=== PATIENT | female | born 1970 | race Caucasian/White ===

== ENCOUNTER 2022-04-19 08:17 | Outpatient (CLI) | payer BC, SELFPAY ==
[2022-04-19 12:46] LABS: Chloride* 107 mmol/L (96-114)
[2022-04-19 12:47] LABS: Albumin* 4.5 g/dL (3.3-5.0); Potassium* 4.4 mmol/L (3.6-5.1); Sodium* 139 mmol/L (135-149)
[2022-04-19 12:49] LABS: Cholesterol* 243 mg/dL (90-199); Creatinine* 0.6 mg/dL (0.5-1.5); Estimated Glomerular Filt Rate 107 ml/min
[2022-04-19 12:50] LABS: Alanine Aminotransferase* 21 U/L (4-35); Alkaline Phosphatase* 62 U/L (40-150); Aspartate Amino Transferase* 26 U/L (12-35); Bilirubin Total* 0.9 mg/dL (0.1-1.5); Blood Urea Nitrogen* 13 mg/dL (7-30); Calcium* 9.3 mg/dL (8.4-10.6); Carbon Dioxide* 20 mmol/L (20-32); Glucose* 118 mg/dL (60-115); HDL Cholesterol* 66 mg/dL (>=50); LDL Cholesterol Calculated 153 mg/dL (<100); Total Protein* 7.4 g/dL (6.0-8.3); Triglycerides* 120 mg/dL (40-149)
[2022-04-19 15:14] LABS: Free T4 Free Thyroxine* 0.89 ng/dL (0.70-1.85)
== END 2022-04-19 08:18 | disposition home or self-care (01) ==
PROVIDERS: PCP Physician Assistant Medical; Visit Provider Physician Assistant Medical
DX: Z00.00 Encounter for general adult medical examination without abnormal findings (principal); I10 Essential (primary) hypertension; R73.01 Impaired fasting glucose; E78.5 Hyperlipidemia, unspecified; E66.9 Obesity, unspecified
CPT/HCPCS: 80053; 80061; 84439; 84443

== ENCOUNTER 2023-12-17 09:51 | Outpatient (CLI) | payer BC, SELFPAY ==
--- OUTSIDE RECORDS SUMMARY | 2023-12-21 02:55 | XMS_ITS ---
Author Organization [facility] Address [address] [place] [address] Care Team Providers Care Double Bottom Driver Name Role Phone None, No PCP Primary Care Provider Jud Padron Unavailable [phone] REASON FOR VISIT Rx Questions Encounters Encounter Location Date Provider Diagnosis [facility] [address] [place] [address] 12/03/2023 Jud Roche Plan Of Treatment No Information Progress Notes * Jayme LOPEZOB:1970 ( 53 yo F)Acc No.[id number]:12/03/2023 Patient:?Nina LOPEZ :1970???Age:53 Y???Sex:Female [place] [place], [address] * true * Date:? Generated for Pam leo/Chavo/eTransmitting on:?12/21/2023 02:55 AM CDT
--- OUTSIDE RECORDS SUMMARY | 2023-12-21 02:55 | XMS_ITS | Clinical Summary ---
Author Organization [facility] Address [place] [address] Care Team Providers Care Metal Tester Name Role Phone Rachana Thacker PA-C Primary Care Provider [phone] Allergies No known active allergies Medications Medication Sig Dispensed Refills Start Date End Date Status lisinopril (PRINIVIL; ZESTRIL) 10 mg tablet Take 1 tablet by mouth once daily. 0 10/25/2012 Active metroNIDAZOLE 0.75 % cream APPLY TOPICALLY BID. APPLY THIN LAYER TO CLEAN FACE TWICE DAILY 12/31/2019 Active rizatriptan (MAXALT) 5 mg tablet 12/31/2019 Active Active Problems No known active problems Encounters Date Type Department Care Team Description 10/04/2023 9:45 AM CDT Office Visit [facility] [address] [place] [address] Luis Johnston, OD Eye Exam (CEE) 10/04/2023 Travel 10/02/2023 11:20 AM CDT Ancillary Procedure [facility] [address] [facility] [address] [place] [address] 10/02/2023 Travel 09/30/2023 Travel from Last 3 Months Family History Medical History Relation Name Comments Cancer-colon Maternal Grandmother Cancer Mother gall bladder pr imary, widespread abd mets includin pancreas, 12 days after diagnosis Cancer-breast Other Mat great aunt Cancer-ovarian No Family History Cancer-pancreatic No Family History Cancer-prostate No Family History Relation Name Status Comments Maternal Grandmother Mother Other Social History Tobacco Use Types Packs/Day Years Used Date Smoking Tobacco: Never Smokeless Tobacco: Never Alcohol Use Standard Drinks/Week Comments Yes 0 (1 standard drink = 0.6 oz pur e alcohol) Social Connections Answer Date Recorded Frequency of Communication with Friends and Fami ly Not on file 03/22/2021 Financial Resource Strain Answer Date R ecorded Difficulty of Paying Living Expenses Not on file 03/22/2021 Difficulty of Paying Living Expenses Not on file 03/22/2021 Sex and Gender Information Value Date Recorded Sex Assigned at Not on file Gender Identity Not on file Sexual Orientation Not on file Obstetrics History Last Filed Vital Signs Vital Sign Reading Time Taken Comments Blood Pressure 136/70 03/16/2020 11:33 AM PLUMBER'S ASSISTANT Pulse 87 03/16/2020 11:33 AM PLUMBER'S ASSISTANT Temperature - - Respiratory Rate - - Oxygen Saturation - - Inhaled Oxygen Concentration - - Weight 108.8 kg (239 lb 14.4 oz) 2019 11:33 AM PLUMBER'S ASSISTANT Height 167.6 cm (5' 6) 03/16/2020 11:3 3 AM PLUMBER'S ASSISTANT Body Mass Index 38.72 03/16/2020 11:33 AM PLUMBER'S ASSISTANT Plan of Treatment Health Maintenance Due Date Last Done Comments Tdap 1979 Depression screening for age 12+ 1980 HIV for age 15-65 1983 Hepatitis C screening for age 18-79 1986 Tetanus booster 1988 Colonoscopy through age 75 2013 Lipids for age 45-75 2013 Zoster (shingles) series for age 50+ (1 of 2) 2018 BMI (ht and wt on same day) for age 18+ 03/16/2021 03/16/2020 Pap test for age 21-65 12/02/2021 12/02/2018, 2018 COVID-19 vaccine series (2023- season) 2023 05/06/2023, 01/25/2022, 11/04/2021, Additional history exists Influenza for age 50-64 11/25/2023 Mammogram for age 45-75 10/01/2024 10/02/19 24, 03/01/2022, 02/24/2021 Pneumococcal series for age 6-64 Aged Out No longer eligible based on patient's age to complete this topic Procedures Procedure Name Priority Date/Time Associated Diagnosis Comments XR MAMMO YORDY BILAT SCREEN Routine 10/02/2023 11:26 AM CDT Visit for screening mammogram CASTING ASSISTANT THIN PREP PAP SCREEN IMAGED Routine 12/02/2018 10:00 AM CDT from Last 3 Months or Most Recently Relevant to Health Maintenance Results * XR MAMMO YORDY BILAT SCREEN (10/02/2023 11:26 AM CDT) Anatomical Region Laterality Modality BREASTS, Breast Left, Breast Right Bilateral Mammography Impressions 10/02/2023 3:27 PM CDT ??There is no radiographic evidence for malignancy. ??Recommend annual mammograms. MAMMOGRAM ASSESSMENT: ??ACR 1 Negative PATIENTS: You will also receive a letter with your examination results in an easy to read format. ??If you have questions about your results, please contact your referring provider. Narrative 10/02/2023 3:27 PM CDT For Patients: As a result of the Century Cures Act, medical imaging exams and procedure reports are released immediately into your electronic medical record. You may view this report before your referring provider. If you have questions, please contact your health care provider. XR MAMMO YORDY BILAT SCREEN [[id number]] CLINICAL HISTORY: ??This is an asymptomatic 53 y.o. patient. INDICATION FOR EXAM: Mammogram Screening. TECHNIQUE: CC & MLO views were obtained. ??This study was evaluated with the assistance of Computer-Aided Detection. Breast Tomosynthesis was used in interpretation. COMPARISON FILM: Yes 03/01/22 [facility] 02/24/21 [facility] FINDINGS: ??The breasts are heterogeneously dense, which may obscure small masses. There are no dominant masses, suspicious micro calcifications or areas of architectural distortion. Rachana Thacker PA-C MAMMO * CASTING ASSISTANT THIN PREP PAP SCREEN IMAGED (12/02/2018 10:00 AM CDT) Case Report Gynecologic Cytology Report ? Case: [id number] ? Authorizing Provider: ??Rachana Thacker PA-C ?Collected: ? 12/02/2018 1000 ? Ordering Location: ? [facility] ?Received: ?12/03/2018 1415 ? First Screen: ?Donald Ordoñez ? Specimen: ?CASTING ASSISTANT ThinPrep Vial Screening, Cervical/Vaginal ? 12/09/2018 10:36 AM [facility] INTERPRETATION/ RESULT NEGATIVE FOR INTRAEPITHELIAL LESION OR MALIGNANCY (NIL) (none) 12/09/2018 10:36 AM [facility] IMEN ADEQUACY Satisfactory for evaluation Endocervical component present 12/09/2018 10:36 AM [facility] HPV REQUEST HPV and PAP 12/09/2018 10:36 AM [facility] Date of LMP 11/24/2018 12/09/2018 10:[facility] Last Pap Date 01/01/2012 12/09/2018 10:36 AM [facility] Last Pap Result NIL 9 10:36 AM [facility] Automated Review Successful 12/09/2018 10:36 AM [facility] Comment:Specimen processed s uccessfully by automated lay out maker device, ThinPrep Imaging System, [employer] ANCILLARY TESTING CASTING ASSISTANT HPV Ordered, Please see separate report 12/09/2018 10:36 AM CDT [facility] Note The pap test is a screening technique, not a diagnostic procedure. ??It is used primarily to screen for squamous cancers and precursor lesions. ??Published studies have shown that it is subject to both false negative and false positive results. ??The pap test should not be used as the sole means to diagnose or exclude pre-malignant and malignant lesions. Cytology is screened and interpreted at [facility] - [address], [place] [address] and [facility] - [address]; [place] [address] and [facility] - [address]; [place] [address] and [facility] [address]; [place] [address] 12/09/2018 10:[address] [facility] Other (Cervical/Vagina l) 12/02/2018 10:00 AM CDT 12/03/2018 2:15 PM CDT Rachana Thacker PA-C PATHOLOGY/CYTOLOGY [facility] [address] [place] [address], [place] from Last 3 Months or Most Recently Relevant to Health Maintenance Care Teams Metal Tester Relationship Specialty Start Date End Date Rachana Thacker PA-C [address] [place], [place] [id number] PCP - General Emergency Medicine 08/20/20
--- OUTSIDE RECORDS SUMMARY | 2023-12-21 02:55 | XMS_ITS | Continuity of Care Document ---
Author Organization [facility] Address [address] [address] [place] [address] Phone Care Team Providers Care Specialties Operator Name Role Phone Landen Coughlin MD, Edwin Zambrano Unavailabl e Advance Directives Directive Yes / No Effective Date File Name No Information Encounters Encounter Description Practice Location Reason(s) For Visit Diagnoses Date Provider Providers Copied on Encounter [facility], [address] [address], [place], [place], [id number], [place] tel:[phone] [facility] No Information Landen Pineda. [address] [facility] [facility] [address], [place], [place], [id number], [place]. tel:[phone] Family History Family Member Type Diagnosis Age At Onset No Information Payers Payer name Insurance type Covered constitution party ID Authoriza tion(s) No Information Social History Type Description Quantity Date Captured Comments Sex Female Smoking Status No Information Chief Complaint And Reason For Visit No Information Reason For Referral Reason For Referral No Information Plan Of Treatment Date Type Action Status Appointment Nina Dudley BOOKED History Of Present Illness Encounter Date Complaint History Of Prese nt Illness No Information Functional Status Date Functional Assessmen t No Information Instructions Date Instruction Additional Infor mation No Information Assessments Type Assessment Date No Information Patient Care Teams Name Effective Dates (start - stop) Status Members No Information
--- OUTSIDE RECORDS SUMMARY | 2023-12-21 02:55 | XMS_ITS ---
Author Organization [facility] Address [address] [place] [address] Care Team Providers Care Pr Specialist Name Role Phone None, No PCP Primary Care Provider Jud Padron Unavailable [phone] Allergies No Known Allergies REASON FOR VISIT bp chk Medications Medication SIG (Take, Route, Frequency, Duration) Notes Start Date End Date Status Glucosamine Active Maxalt 10 MG 0.5 Tablet Orally PRN Active Lisinopril 10 MG 1 tablet Orally Once a day for 30 days Active Progesterone 100 MG 1 capsule at bedtime Orally Once a day for 90 days 11/19/2023 Active Magnesium Active Testosterone 4 MGS/0.5 Grams topically daily Active Estradiol 0.05 MG/24HR 1 patch to skin Transdermal Two times a Week for 30 days 11/19/2023 Active Social History Tobacco Use: Social History Observation Description Date Details (start date - stop date) Never Smoker NA - NA Tobacco Control (Standard) Question Answer Notes Tobacco use: Nonsmoker Vital Signs Blood pressure systolic 136 mm Hg 12/03/19 24 Blood pressure diastolic 90 mm Hg 024 Height 66 in 12/03/2023 Encounters Encounter Location Date Provider Diagnosis [facility] [address] [place] [address] 12/03/2023 Jud Roche Plan Of Treatment No Information Progress Notes * Jayme LOPEZOB:1970 ( 53 yo F)Acc No.[id number]:12/03/2023 Progress Notes Patient:?Nina LOPEZ Provider:?Jud Roche MD :1970???Age:53 Y???Sex:Female D ate:12/03/2023 [facility] Pcp:No PCP None Subjective: * Chief Complaints: * ???1. Bp chk. * Medical History:?Chicken Pox , Hypertension, Gall Bladder disease, Bladder Infections, Migraines, Roscea. * Pugger Helper History:?Date of Last Period:?05/10/22.? Control: ?Partner with Vasectomy.?Sexual Activity?Currently sexually active, male partner.?Sexually Tranmitted Disease (STD)?Trichomoniasis.? * OB History:?GPAL:? x4 .? * Surgical History:?cholecyste ctomy , Hernia repair , Ectopic rupture , wisdom teeth extraction . * Hospitalization/Major Diagno stic Procedure:?Delivery/ . * Family History:? Ma Gmo: Colon CA Father: DMII Mother: Gall Bladder CA, Rheumatoid Arthritis, & Acoustic Neuroma. * Social History:?Tobacco Use:?Tobacco Control (Standard)?Tobacco use:?Nonsmoker ???Drugs/Alcohol:?Drugs?Have you used drugs other than those for medical reasons in the past 12 months??No ?Delta 8?No ?Caffeine?Intake:?1-2 cups per day Green and Black tea ?Do you smoke marijuana?: Denies. ?Do you drink alcohol?: Yes, Socially, ~6 drinks/month. ???Miscellaneous:?Exercise: none. * Medications:?Taking [place] , Notes to Pharmacist: 4 MGS/0.5 Grams topically daily, Taking Magnesium , Taking Glucosamine , Taking Maxalt 10 MG Tablet 0.5 Tablet Orally PRN , Taking Lisinopril 10 MG Tablet 1 tablet Orally Once a day , Taking Progesterone 100 MG Capsule 1 capsule at bedtime Orally Once a day , Taking Estradiol 0.05 MG/24HR Patch Twice Weekly 1 patch to skin Transdermal Two times a Week , Medication List reviewed and reconciled with the patient * Allergies:?N.K.D.A. Objective: * Vitals:?Ht: 66 in, BP:136/90 mm Hg. Assessment: Plan: * Treatment: * Preventive Medicine:? ??YOUR PREVENTIVE WELLNESS PLAN:?Breast Cancer Screening (Mammogram):?My last mammogram was done on:?10/02/2023 WNL ?Cervical Cancer Screening (Pap Smear):?My last Pap smear was done on:?12/02/2018 NILM/-HPV ?Osteoporosis Screening (Bone Density Measurement):?My last bone density was done on:?Never, Under 65yr ?Colorectal Cancer Screening:?Last Done Colonoscopy?01/24/2019 WNL * Images: Billing Information: * Visit Code:? * Procedure Codes:? * Sign off status: Completed true * Provider:?Jud Roche MD Date:?11/2023 Generated for Pam leo/Chavo/eTfaye on:?12/21/2023 02:55 AM CDT
--- OUTSIDE RECORDS SUMMARY | 2023-12-21 02:56 | XMS_ITS | Patient Health Record ---
Author Organization [facility] Address [address] [place] [address] Care Team Providers Care Director Of Manufacturing Operations Name Role Phone None, No PCP Primary Care Provider Jud Padron Unavailable [phone] Allergies No Known Allergies Results Component Value Reference Range Notes TESTOSTERONE, FREE Reviewed date:11/05/2023 01:00:58 PM Interpretation: Performing Lab:Z3[facility], [facility]F[address]ixm[address] [place] [address], [address]TX[address] Pipo Batista MD,PhD Notes/Report: TESTOSTERONE, FREE 1.4 0.2-5.0 pg/mL [facility] [employer] [address] [address],[address] [place] [address] Pipo Batista MD, PhD TESTOSTERONE, TOTAL, LC/MS/M S Reviewed date:11/05/2023 01:00:21 PM Interpretation: Performing Lab:Z3E, Med[facility]-OfiFykdyq[address] [place] [address], [address] Pipo Batista MD,PhD Notes/Report: TESTOSTERONE, TOTAL, MS 13 2-45 ng/dL For additional information, please refer to https://education.Zogenix.Open Range Communications/faq/TotalTest osteroneLCMSMS (This link is being provided for informational/educational purposes only.) (Note) This test was developed and its analytical performance characteristics have been determined by [employer]. It has not been cleared or approved by the FDA. This assay has been validated pursuant to the CLIA regulations and is used for clinical purposes. [facility] [employer] [address] [address],[address] [place] [id number] Pipo Batista MD, PhD SEX HORMONE BINDING GLOBULIN Reviewed date:10/31/2023 12:11:56 PM Interpretation: Performing Lab:Seb SOLIS-Rufino [address], [place] FgjuAA[address] Isael Patel Notes/Report: SEX HORMONE BINDING GLOBULIN 63 17-124 nmol/L T3, FREE Reviewed date:10/31/2023 12:16:08 PM Interpretation: Performing Lab:Seb SOLIS-[facility] [address], [place] AqasFH[address] Isael Patel Notes/Report: T3, FREE 3.2 2.3-4.2 pg/mL TSH Reviewed date:10/31/2023 12:13:02 PM Interpretation: Performing Lab:Seb SOLISe[address], [place] MqpbYD[address] Isael Patel Notes/Report: TSH 2.94 Reference Range > or = 20 Years 0.40-4.50 Ranges First trimester 0.26-2.66 Second trimester 0.55-2.73 Third trimester 0.43-2.91 CORTISOL, TOTAL Reviewed date:10/31/2023 12:13:30 PM Interpretation: Performing Lab:Seb [address], [place] XgipVT[address] Isael Patel Notes/Report: CORTISOL, TOTAL 9.0 Reference Range: For 8 a.m.(7-9 a.m.) Specimen: 4.0-22.0 Reference Range: For 4 p.m.(3-5 p.m.) Specimen: 3.0-17.0 * Please interpret above results accordingly * T4, FREE Reviewed date:10/31/2023 12:11:25 PM Interpretation: Performing Lab:Seb SOLIS [address], [place] FfwjDE[address] Isael Patel Notes/Report: T4, FREE 1.0 0.8-1.8 ng/dL PROLACTIN Reviewed date:10/31/2023 12:12:34 PM Interpretation: Performing Lab:Seb SOLIS [address], [place] SfxzSZ[address] Isael Patel Notes/Report: PROLACTIN 5.7 Reference Range Females Non- 3.0-30.0 10.0-209.0 Postmenopausal 2.0-20.0 LH Reviewed date:10/31/2023 12:10:17 PM Interpretation: Performing Lab:Seb SOLIS [address], [place] LeyvaBdjtQS[address] Isael Patel Notes/Report: LH 20.8 Reference Range Follicular Phase 1.9-12.5 Mid-Cycle Peak 8.7-76.3 Luteal Phase 0.5-16.9 Postmenopausal 10.0-54.7 FSH Reviewed date:10/31/2023 12:15:38 PM Interpretation: Performing Lab:Seb SOL[address], [place] LeyvaWnqfTY[address] Isael Patel Notes/Report: FSH 50.0 Reference Range Follicular Phase 2.5-10.2 Mid-cycle Peak 3.1-17.7 Luteal Phase 1.5- 9.1 Postmenopausal 23.0-116.3 DHEA SULFATE Reviewed date:10/31/2023 12:13:55 PM Interpretation: Performing Lab:Seb [address], [place] JohnsonBmopSJ[address] Isael Patel Notes/Report: DHEA SULFATE 55 5-167 mcg/dL PROGESTERONE Reviewed date:10/31/2023 12:14:40 PM Interpretation: Performing Lab:Seb SOLIS [address]Katty [address], [place] JohnsonKtkiPW[address] Isael Paetl Notes/Report: PROGESTERONE <0.5 Reference Ranges Female Follicular Phase < 1.0 Luteal Phase 2.6-21.5 Post menopausal < 0.5 1st Trimester 4.1-34.0 2nd Trimester 24.0-76.0 3rd Trimester 52.0-302.0 ESTRADIOL Reviewed date:10/31/2023 12:10:47 PM Interpretation: Performing Lab:Seb SOLIS [address], [place] JohnsonLimdRD[address] Isael Patel Notes/Report: ESTRADIOL <15 Reference Range Follicular Phase: 19-144 Mid-Cycle: 64-357 Luteal Phase: 56-214 Postmenopausal: < or = 31 Reference range established on post-pubertal patient population. No pre-pubertal reference range established using this assay. For any patients for whom low Estradiol levels are anticipated (e.g. males, pre-pubertal children and hypogonadal/post-menopausa l females), the [facility] Estradiol, Ultrasensitive, LCMSMS assay is recommended (order code 44387). Please note: patients being treated with the drug fulvestrant (Faslodex(R)) have demonstrated significant interference in immunoassay methods for estradiol measurement. The cross reactivity could lead to falsely elevated estradiol test results leading to an inappropriate clinical assessment of estrogen status. [employer] order code [id number], Ultrasensitive LC/MS/MS demonstrates negligible cross reactivity with fulvestrant. TSH Reviewed date:10/17/2023 09:59:10 PM Interpretation: Performing Lab:Seb SOLIS-[facility] [address], [place] JohnsonRaisFA[address] Isael Patel Notes/Report: TSH 2.84 Reference Range > or = 20 Years 0.40-4.50 Ranges First trimester 0.26-2.66 Second trimester 0.55-2.73 Third trimester 0.43-2.91 HEMOGLOBIN A1c Reviewed date:10/17/2023 09:58:35 PM Interpretation: Performing Lab:Seb SOLIS-Rufino [address] Zmqnw.com.cntel [address], [place] JohnsonPsexLU[address] Isael Patel Notes/Report: HEMOGLOBIN A1c 5.5 <5.7 % of total Hgb For the purpose of screening for the presence of diabetes: <5.7% Consistent with the absence of diabetes 5.7-6.4% Consistent with increased risk for diabetes (prediabetes) > or =6.5% Consistent with diabetes This assay result is consistent with a decreased risk of diabetes. Currently, no consensus exists regarding use of hemoglobin A1c for diagnosis of diabetes in children. According to [place] Diabetes Association (ADA) guidelines, hemoglobin A1c <7.0% represents optimal control in non- diabetic patients. Different metrics may apply to specific patient populations. Standards of Medical Care in Diabetes(ADA). This test was performed on the Soto manny c503 platform. Effective 05/30/23, a change in test platforms from the Flores [employer] Application Developer to the Soto manny c503 may have shifted HbA1c results compared to historical results. Based on laboratory validation testing conducted at [facility], the Soto platform relative to the Flores platform had an average increase in HbA1c value of < or = 0.3%. This difference is within accepted variability established by the National Glycohemoglobin Standardization Program. Note that not all individuals will have had a shift in their results and direct comparisons between historical and current results for testing conducted on different platforms is not recommended. CBC (INCLUDES DIFF/PLT) Reviewed date:10/17/2023 09:58:03 PM Interpretation: Performing Lab:WILL [facility] [address], [place] FcboNF[address] Isael Patel Notes/Report: WHITE BLOOD CELL COUNT 5.7 3.8-10.8 Thousand/ uL RED BLOOD CELL COUNT 4.55 3.80-5.10 Million/uL HEMOGLOBIN 13.3 11.7-15.5 g/dL HEMATOCRIT 39.9 35.0-45.0 % MCV 87.7 80.0-100.0 fL MCH 29.2 27.0-33.0 pg MCHC 33.3 32.0-36.0 g/dL RDW 13.1 11.0-15.0 % PLATELET COUNT 262 140-400 Thousand/uL MPV 11.0 7.5-12.5 fL ABSOLUTE NEUTROPHILS 3135 5072-9794 cells/uL ABSOLUTE LYMPHOCYTES 6881 211-2528 cells/uL ABSOLUTE MONOCYTES 416 200-950 cells/uL ABSOLUTE EOSINOPHILS 120 15-500 cells/uL ABSOLUTE BASOPHILS 51 0-200 cells/uL NEUTROPHILS 55 LYMPHOCYTES 34.7 MONOCYTES 7.3 EOSINOPHILS 2.1 BASOPHILS 0.9 COMPREHENSIVE METABOLIC PANE L (CMP) Reviewed date:10/17/2023 10:01:21 PM Interpretation: Performing Lab:[facility] [address] [place], [place] [facility] HospitalYduyEU[address] Isael Patel Notes/Report: GLUCOSE 100 65-99 mg/dL Fasting reference interval For someone without known diabetes, a glucose value between 100 and 125 mg/dL is consistent with prediabetes and should be confirmed with a follow-up test. UREA NITROGEN (BUN) 10 7-25 mg/dL CREATININE 0.61 0.50-1.03 mg/dL EGFR 106 > OR = 60 mL/min/1.73m2 BUN/CREATININE RATIO SEE NOTE: 6-22 (calc) Not Reported: BUN and Creatinine are within reference range. SODIUM 140 135-146 mmol/L POTASSIUM 4.4 3.5-5.3 mmol/L CHLORIDE 104 98-110 mmol/L CARBON DIOXIDE 25 20-32 mmol/L CALCIUM 9.6 8.6-10.4 mg/dL PROTEIN, TOTAL 7.3 6.1-8.1 g/dL ALBUMIN 4.5 3.6-5.1 g/dL GLOBULIN 2.8 1.9-3.7 g/dL (calc) ALBUMIN/GLOBULIN RATIO 1.6 1.0-2.5 (calc) BILIRUBIN, TOTAL 1.0 0.2-1.2 mg/dL ALKALINE PHOSPHATASE 69 37-153 U/L AST 28 10-35 U/L ALT 26 6-29 U/L THINPREP TIS AND HPV mRNA E6 /E7 (30 yrs and over) Reviewed date:10/17/2023 09:57:12 PM Interpretation: Performing Lab:[place], [facility] [id number] Isael Patel Notes/Report: CLINICAL INFORMATION: None g iven LMP: 2022 PREV. PAP: 2019 PREV. BX: NONE GIVEN SOURCE: Cervix STATEMENT OF ADEQUACY: Satisfactory for evaluation. Endocervical/transformatio n zone component present. INTERPRETATION/RESULT: Cytology Results: Negative for intraepithelial lesion or malignancy. COMMENT: This Pap test has been evaluated with computer assisted technology. ACID REGENERATOR: KENDALL RAMIREZ(ASCP) CT Screening location: [place] [address] COMMENT EXPLANATORY NOTE: The Pap is a screening test for cervical cancer. It is not a diagnostic test and is subject to false negative and false positive results. It is most reliable when a satisfactory sample, regularly obtained, is submitted with relevant clinical findings and history, and when the Pap result is evaluated along with historic and current clinical information. HPV mRNA E6/E7 Not Detected Not Detected Methodology: Technology Director-Mediated Amplification This assay detects E6/E7 viral messenger RNA (mRNA) from 14 high-risk HPV types (16,18,31,33,35,39,45,51,5 2,56,58,59,66,68). Cervical sources are required for HPV testing. If a vaginal source from a patient who has had a total hysterectomy with removal of cervix was submitted, please contact the testing laboratory for alternative testing options. For additional information, please refer to http://education.Albumatic/faq/YHR833t3 (This link if provided for information/ educational purposes only.) LIPID PANEL Reviewed date:10/17/2023 10:00:18 PM Interpretation: Performing Lab:W[place], [facility], [place] KcAsefCF[address] Isael Patel Notes/Report: CHOLESTEROL, TOTAL 221 <200 mg/dL HDL CHOLESTEROL 54 > OR = 50 mg/dL TRIGLYCERIDES 134 <150 mg/dL LDL-CHOLESTEROL 141 Reference range: <100 Desirable range <100 mg/dL for primary prevention; <70 mg/dL for patients with CHD or diabetic patients with > or = 2 CHD risk factors. LDL-C is now calculated using the Christina calculation, which is a validated novel method providing better accuracy than the Friedewald equation in the estimation of LDL-C. Eric SS et al. EMMA. 2013;310(19): 0059-9736 (http://education.Coolest Cooler/faq/IAC904) CHOL/HDLC RATIO 4.1 <5.0 (calc) NON HDL CHOLESTEROL 167 <130 mg/dL (calc) For patients with diabetes plus 1 major ASCVD risk factor, treating to a non-HDL-C goal of <100 mg/dL (LDL-C of <70 mg/dL) is considered a therapeutic option. Reason For Referral Reason [facility] pt will call to schedule 11/20 Diagnosis 1 Screening (Z13.9) Referral Organization [facility] Referring Provider First Name Jud Referring Provider Last Name Melchor Referring Provider Speciality Obstetrici an and bryologist Referred Provider Specialty Gastroentero logy General Notes Jud Roche 03:05:27 PM CDT >Please schedule this patient for a screening Colonoscopy, she is on the 5 yearly Screening [facility], Thank you Clinical Notes Viktoriya Messina 09/24 01:47:32 PM >referral entered through [facility] portal by Siddharth Crooks Kaylee 10/23/2023 11:33:14 AM >Update from [facility] portal: Updated: 10/19/2023 10:25, We will attempt to call Nina Dudley again on Oct 19 2023. (LVM), Viktoriya Messina 10/26/2023 09:02:07 AM >Updated: 10/19/2023 14:05, We will attempt to call Nina Octavia again on Invalid date. (Reviewed pt demographics and health hx questions. Pt will call back to choose a day at the [facility] for her colonoscopy.), Viktoriya Messina 11/13/2023 11:42:03 AM >update from [facility]: Updated: 10/31/2023 04:30, We made a 2nd Attempt to contact Nina Dudley. (Patient Letter Sent), Updated: 10/23/2023 16:33, We made a 1st Attempt to contact Nina Dudley. (attempt made by Rachna on 10/19/23.), Updated: 11/11/2023 04:45, We cancelled the Colonoscopy order for Nina Dudley. Reason: Unable to Contact Patient. (Unable to Contact Patient), spoke to pt and she is working on getting the appt scheduled., Viktoriya Messina 11/21/2023 03:34:30 PM >spoke to pt and she said she is working on getting it scheduled but her schedule is crazy. Referral Priority Routine Medications Medication SIG (Take, Route, Frequency, Duration) [...] (Standard) Question Answer Notes Tobacco use: Nonsmoker Problems Problem Type SNOMED Code ICD Code Onset Dates Problem Status W/U Status Risk Notes Problem 338204077 Mixed hyperlipidemia (E78.2) Active confirmed Problem Menopause (495576747) Menopausal and female climacteric states (N95.1) Active confirmed Problem 62086560 Essential hypertension (I10) Active confirmed Problem 68787657 Menopausal symptoms (N95.1) Active confirmed Problem 764226909 BMI 38.0-38.9,adult (Z68.38) Active confirmed Vital Signs Blood pressure diastolic 90 mm Hg 12/03/2023 Height 66 in 12/03/2023 Blood pressure systolic 136 mm Hg 12/03/2023 Weight 240.2 lbs 10/29/2023 BMI 38.77 kg/m2 10/29/2023 Encounters Encounter Location Date Provider Diagnosis [address] [address] 10/29/2023 Jud Roche [facility] [address] [place] [address] 10/15/2023 Jud Roche Women's annual routine gynecological examination Z01.419 ; BMI 38.0-38.9,adult Z68.38 ; Hot flashes R23.2 ; Low libido R68.82 ; Essential hypertension I10 ; Screening for metabolic disorder Z13.228 ; Diabetes mellitus screening Z13.1 ; Lipid screening Z13.220 ; Screening for endocrine disorder Z13.29 and Encounter for screening for human papillomavirus (HPV) Z11.[address] [address] 10/29/2023 Jud Roche Encounter for other specified special examinations Z01.89 [facility] [address] [place] [address] 10/29/2023 Jud Roche Menopausal symptoms N95.1 ; BMI 38.0-38.9,adult Z68.38 ; Elevated blood pressure reading R03.0 ; Mixed hyperlipidemia E78.2 and Menopausal and female climacteric states N95.[address] [address] 11/15/2023 Jud Roche Counseling for hormone replacement therapy Z71.89 and Essential hypertension I10 [address] [address] 11/19/2023 Jud Roche [address] [address] 12/03/2023 Jud Roche [facility] [address] [place] [address] 10/15/2023 Jud Roche [facility] [address] [facility] [address] [place], [place] [id number] 10/18/2023 Jud Roche [facility] [address] [place] [address] 11/19/2023 [facility] [address] [place] [id number] 11/21/2023 Jud Roche [facility] [address] [place] [address] 12/03/2023 Jud Roche [facility] [address] [place] [address] 12/03/2023 Jud Roche Assessments Encounter Date Diagnosis (ICD Code) Assessment Notes Treatment Notes Treatment Clinical Notes 10/15/2023 Women's annual routine gynecological examination (ICD-10 - Z01.419) The patient was encouraged to make some lifestyle changes. To change her food choices, remove sugar, make vegetables her staple, eat lean meat and fish and healthy fats.This would control her weight, BMI 38.1 Also, to work regular exercise into her routine at least 3 or 4 times. The exercise is good for overall health and also helps the bones, along with supplements of vitamin D Calcium and Magnesium. A pap smear was taken and she would have annual screening labs. All of her questions were addressed. 10/15/2023 BMI 38.0-38.9,adult (ICD-10 - Z68.38) 10/29/2023 Encounter for other specified special examinations (ICD-10 - Z01.89) 10/29/2023 Menopausal symptoms (ICD-10 - N95.1) The patient is here today complaining of menopausal symptoms and is interested in HRT A brief overview of The benefits and possible risk s of HRT was reviewed with her. It was further explained to her that I would order a battery of hormone tests, and she is to follow up in 1 week At that visit I would discuss hormone replacement with her. All of her questions were addressed 10/29/2023 BMI 38.0-38.9,adult (ICD-10 - Z68.38) The patient feels it difficult to control her weight 11/15/2023 Essential hypertension (ICD-10 - I10) The patient's blood pressure was 160/102 mm Hg. She was instructed to attend for a blood pressure check. Also, to see her portable sawmill operator for management of elevated LDL cholesterol. She stated that she rarely gets Migraines All of her questions were addressed 11/15/2023 Counseling for hormone replacement therapy (ICD-10 - Z71.89) It was explained to the patient that her Estradiol, Progesterone, FSH and LH levels indicate that she is menopausal. Her total and free testosterone levels are in the lower end of normal and that may be contributing to her low libido. She is certainly a candidate for HRT. It was further explained that once estrogen is started, it is mandatory for her to also receive Progesterone to protect her uterus from exposure to unopposed estrogen. This is because unopposed estrogen causes uterine cancer. The benefits of HRT were explained to her, also the possible side effects including an increase risk for breast cancer and blood clots The various mode of delivery were addressed The preferred form for starting was explained to her to be transdermal, and the bioidentical Progesterone orally She is also interested in testosterone therapy and that was also discussed with her. She wishes to use the cream The follow-up was explained, initially 3 months. However, when she is on a stable dose 6 monthly. Also, that it is a mandatory part of the management to have an annual mammogram. Today a prescription for Testosterone at a dose of 4 MGS/0.5 Gram would be sent to the compounding Pharmacy, [facility] She was instructed in its use. However, I requested that she follows up for a blood pressure check as her blood pressure was 160/102 at her last visit. If it is normal a prescription for the Estradiol patch and Prometrium will be sent to her pharmacy All of her questions were addressed 10/29/2023 Elevated blood pressure reading (ICD-10 - R03.0) The patient stated that she ran out of her Lisinopril and has not been in to see her portable sawmill operator and our Family practice MDs do not come to this clinic. I have given her 30 tablets so that she could take her medication until she gets in with Family practice 10/15/2023 Hot flashes (ICD-10 - R23.2) The patient reported experiencing Hot Flashes. She was recommended toschedule a visit to discuss menopausal symptoms and management options. 10/15/2023 Low libido (ICD-10 - R68.82) It was explained that libido decreases during the menopausal years, it would also be addressed at that visit. 10/29/2023 Mixed hyperlipidemia (ICD-10 - E78.2) The patient has mixed Hyperlipidemia which I would like addressed prior It was recommended that she sees Primary care or a Preventive It Sales Executive 10/29/2023 Menopausal and female climacteric states (ICD-10 - N95.1) As above 10/15/2023 Essential hypertension (ICD-10 - I10) The patient stated that she has Essential Hypertension and is in need of medication. She believed that she would obtain at this visit. It was explained to her that se should be followed by a portable sawmill operator, However I would prescribe a months supply and recommended that she's one of our family Practice MDs All of her questions were addressed 10/15/2023 Screening for metabolic disorder (ICD-10 - Z13.228) 10/15/2023 Diabetes mellitus screening (ICD-10 - Z13.1) 10/15/2023 Lipid screening (ICD-10 - Z13.220) 10/15/2023 Screening for endocrine disorder (ICD-10 - Z13.29) 10/15/2023 Encounter for screening for human papillomavirus (HPV) (ICD-10 - Z11.51) 10/29/2023 Other Time spent on patient care including - review of previous records - preparation for visit - ordering medications, labs or imaging - documenting visit - discussion of care with another health certified caregiver if indicated - direct face to face time with patient including obtaining relevant history, physical exam and discussion of plan of care Total time was 25 minutes spent including some or all of above listed required for care of patient talking about diagnosis, treatment and plan of care outside of usual preventive care with the patient as listed in the treatment portion of the note 11/15/2023 Other This visit was conducted with the use of audio and video telecommunications system that permits real time communication between the patient and provider. Patient consent for virtual visit was obtained. [facility] [facility] [facility] [place] home Start time:4:05 Stop time:4:35 Plan Of Treatment No Information Insurance Providers Payer Name Payer Address Payer Phone Subscriber Number Group Number Insured Name Patient Relationship to Insured Coverage Start Date Coverage End Date BCBS - (Client Bill) [address] [place] [phone] [id number] Nina Dudley Self - patient is the insured Medical (General) History Medical History History ICD Code Chicken Pox Hypertension Gall Bladder disease Bladder Infections Migraines Roscea Surgical History Surgery Date(Month/Year) cholecystectomy Hernia repair Ectopic rupture wisdom teeth extraction Hospitalization History Reason Date(Month/Year) Delivery/
--- OUTSIDE RECORDS SUMMARY | 2023-12-21 02:56 | XMS_ITS ---
Author Organization [facility] Address [address] [place] [address] Care Team Providers Care Landscape Foreman Name Role Phone None, No PCP Primary Care Provider Jud Pardon Unavailable [phone] REASON FOR VISIT BP check Encounters Encounter Location Date Provider Diagnosis [facility] [address] [place] [address] 12/03/2023 Jud Roche Plan Of Treatment No Information Progress Notes * Jayme LOPEZOB:1970 ( 53 yo F)Acc No.[id number]:12/03/2023 Patient:?Nina LOPEZ :1970???Age:53 Y???Sex:Female [place] [place], [address] * true * Date:? Generated for Pam leo/Chavo/eTransmitting on:?12/21/2023 02:55 AM CDT
== END 2023-12-17 09:52 | disposition home or self-care (01) ==
LOC: NFLDREF 12-21 02:53
PROVIDERS: PCP Physician Assistant Medical; Visit Provider Physician Assistant Medical
DX: I10 Essential (primary) hypertension (principal); E78.5 Hyperlipidemia, unspecified; R73.01 Impaired fasting glucose; G43.909 Migraine, unspecified, not intractable, without status migrainosus; Z13.29 Encounter for screening for other suspected endocrine disorder
CPT/HCPCS: 80053; 80061; 84443

== ENCOUNTER 2025-02-24 08:28 | Outpatient (CLI) | payer BC, SELFPAY | END 2025-02-24 08:29 | disposition home or self-care (01) | LOC: NFLDREF 02-27 22:58 | PROVIDERS: PCP Physician Assistant Medical; Referring Provider Physician Assistant Medical; Visit Provider Physician Assistant Medical | DX: Z00.00 Encounter for general adult medical examination without abnormal findings (principal) | CPT/HCPCS: 80053; 80061; 84439; 84443 ==